=== PATIENT | male | born 1950 | race Caucasian/White ===

== ENCOUNTER 2017-03-01 13:35 | Emergency (ER) | payer MEDICARE, OTHER ==
[2017-03-01] MEDS: HYDROCODONE/APAP (5/325) TAB PO (15:45)
== END 2017-03-01 19:06 | disposition home or self-care (01) ==
LOC: FTE 13:35
DX: S39.92XA Unspecified injury of lower back, initial encounter (principal); S16.1XXA Strain of muscle, fascia and tendon at neck level, initial encounter; S09.90XA Unspecified injury of head, initial encounter; I10 Essential (primary) hypertension; E11.9 Type 2 diabetes mellitus without complications; R51 Headache; V49.9XXA Car occupant (driver) (passenger) injured in unspecified traffic accident, initial encounter; Z79.01 Long term (current) use of anticoagulants; Z99.2 Dependence on renal dialysis; Z79.82 Long term (current) use of aspirin; Z79.4 Long term (current) use of insulin
CPT/HCPCS: 70450; 72072; 72100; 72125; 99285-25